=== PATIENT | male | born 1980 | race Caucasian/White ===

== ENCOUNTER 2021-02-07 01:32 | Emergency (ER) | payer MEDICAID, SELFPAY ==
[2021-02-07 01:43] VITALS: BP 125/79; PULSE 89; RESP 18; TEMP 36.9; O2SAT 98; BMI 28.3
--- NOTE | 2021-02-07 02:43 | HMH.EDMCLR ---
ED Disposition Clinical Impression: Medical clearance for incarceration Disposition: Home, Self-Care Condition on Discharge: Good Instructions: DI for Puncture Wound Additional Instructions: see pcp for follow up Referrals: Provider,Jeferson, [Primary Care Provider] - - Critical Care Critical Care Time: No Attestation: On 02/07/21, the high probability of a clinically significant, sudden or life threatening deterioration of the following system(s) required my full and direct attention, intervention and personal management. The time I documented below is in addition to time spent performing reported procedures but includes the following listed in this critical care notation. Medical Decision Making - Medical Records Medical records reviewed: Yes: I reviewed the patient's medical records. - Tani Inquiry Pt receiving controlled substance: No Vital Signs: 02/07/21 01:43 Temperature 98.5 F Temperature Source Oral Pulse Rate [Right Brachial] 89 Respiratory Rate 18 Blood Pressure [Right Arm] 125/79 Blood Pressure Mean [Right Arm] 94 Blood Pressure Source [Right Arm] Automatic Cuff Blood Pressure Position [Right Arm] Sitting 02 Sat by Pulse Oximetry 98 Oxygen Delivery Method Room Air Medical Clearance HPI - General Chief complaint: Medical Clearance Stated complaint: Medical Clearance Time Seen by Provider: 02/07/21 02:20 Mode of Arrival: Family Vehicle Source of Information: Patient, Medical Record Limitations: No Limitations Description of Symptoms (Recalled from ER Triage Doc. by RN): MEDICAL CLEARANCE FOR SKILLED NURSING. - History of Present Illness HPI Narrative: no specific c/o - hx of pw lt foot MD complaint: medical clearance requested Onset (ago): hour(s) Place: home Traumatic Symptoms: denies traumatic injury Associated Symptoms: denies other symptoms Treatments Prior to Arrival: none Allergies/Adverse reactions: Allergies Allergy/AdvReac Type Severity Reaction Status Date / Time No Known Allergies Allergy Unverified 09/08/17 15:20 [facility] History - Hepatitis A Screen Drug use history?: No High risk sexual behaviors?: No History of sexually transmitted infection?: No Currently employed?: No Childcare worker?: No Do you have indoor plumbing?: Yes Do you have electricity?: Yes Attestation statement:: This patient has been screened for Hepatitis A risk factors. I have reviewed the patient's past medical history: Yes ROS Obtained: Yes All systems reviewed & no additional complaints - Constitutional Constitutional: Denies fever(s) - Eyes Eyes: Denies eye discharge - ENT Ears, Nose, Mouth, and Throat: Denies sore throat - Cardiovascular Cardiovascular: Denies chest pain - Respiratory Respiratory: Denies shortness of breath - Gastrointestinal Gastrointestingal: Denies: abdominal pain - Genitourinary Male Genitourinary: Denies hematuria - Musculoskeletal Musculoskeletal: Denies joint pain - Integumentary/Breasts Skin/Breast: Denies rash - Neurologic Neurologic: Denies focal weakness Physical Exam - General General appearance: alert - Head Head exam: normocephalic - Eye Eye exam: Present: PERRL, EOMI - ENT ENT exam: Present: mucous membranes moist - Neck Neck exam: Present: trachea midline - Respiratory Respiratory exam: Absent: respiratory distress - Cardiovascular Cardiovascular exam: Present: regular rate - Abdominal Exam Abdominal exam: Present: soft - Extremities Exam Extremities exam: Present: full ROM, other (lt foot appears ok ) - Neurological Exam Neurological exam: Present: alert, CN II-XII intact - Skin Skin exam: Absent: rash
[2021-02-07 02:53] VITALS: BP 101/75; PULSE 89; RESP 16; TEMP 36.8; O2SAT 99
== END 2021-02-07 03:07 | disposition home or self-care (01) ==
PROVIDERS: Emergency Provider Emergency Medicine
DX: S91.332A Puncture wound without foreign body, left foot, initial encounter (principal)
CPT/HCPCS: 99281

== ENCOUNTER 2022-05-17 13:06 | Emergency (ER) | payer MEDICAID, SELFPAY ==
[2022-05-17 13:07] VITALS: BP 110/74; PULSE 98; RESP 16; TEMP 37.2; O2SAT 98; BMI 22.3
--- NOTE | 2022-05-17 13:15 | XR_ITS ---
PROCEDURE INFORMATION: Exam: XR Left Forearm Exam date and time: 05/17/2022 1:33 PM Age: 41 years old Clinical indication: Injury or trauma; Other: Dog bite; Arm, lower; Left; Additional info: Dog bite TECHNIQUE: Imaging protocol: Radiologic exam of the Left forearm. Views: 2 views. COMPARISON: No relevant prior studies available. FINDINGS: Bones/joints: Radius and ulna without appreciable fracture. The distal radius and the distal ulna unremarkable. Visualized portions of the carpus normal. The distal radial ulnar joint normal. Visualized portions without gross deformity. Soft tissues: Soft tissue laceration adjacent to the distal aspect of the ulna volarly. No visualized foreign body. IMPRESSION: Soft tissue laceration adjacent to the distal aspect of the ulna volarly. No visualized foreign body.
--- NOTE | 2022-05-17 13:21 | HMH.EDANIB ---
Discharge Plan Disposition Patient Disposition: Home, Self-Care Condition: Good Chief Complaint: Animal Bite Prescriptions Prescriptions: New clindamycin HCl [Cleocin HCl] 300 mg capsule 300 mg PO Q6H 10 Days Qty: 40 0RF hydrocodone-acetaminophen 7.5-325 mg tablet 1 tab PO Q6H PRN (Reason: pain) Qty: 10 0RF Referrals Follow up/Referrals: Provider,Referral, MD [Primary Care Provider] - See instructions Activity Restrictions/Add. Instructions Additional Instructions/Restrictions: [facility] Call for appt to be seen in 2-3 days, follow up animal control for dog eval, follow up PCP in 7-10 days Clinical Impressions Clinical Impression: Dog bite, Laceration Instructions Patient Instructions: How to Care for a Domestic Animal Bite, Animal Bites Discharge ED Provider: Reed Nolasco Animal Bite HPI General Chief Complaint: Animal Bite Stated Complaint: [id number] dog bite to left wrist Time Seen by Provider: 05/17/22 13:15 Mode of Arrival: Ambulatory Source of Information: Patient Limitations: No Limitations History of Present Illness HPI narrative: 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 Onset (ago): minute(s) Animal: dog Description of animal: appeared ill (unprovoked attack on street, says he can find dog and report to animal control for rabies hx and monitoring) Mechanism: bite Left: forearm Pain description: sharp Associated symptoms: none Related Data Patient tetanus UTD: No Previous Rx's Medication Instructions Recorded clindamycin HCl 300 mg capsule 300 mg PO Q6H 10 days #40 caps 05/17/22 (Cleocin HCl) hydrocodone 7.5 mg-acetaminophen 1 tab PO Q6H PRN pain #10 tabs 05/17/22 325 mg tablet Allergies Allergy/AdvReac Type Severity Reaction Status Date / Time No Known Allergies Allergy Unverified 09/08/17 15:20 PFSH PFSH Social History Smoking Status: Current every day smoker alcohol intake: never current occupational status: other ROS Obtained: Yes All systems reviewed & no additional complaints except as documented Physical Exam General General appearance: alert and in no apparent distress Respiratory Respiratory exam: Absent respiratory distress, wheezes or stridor Cardiovascular Cardiovascular exam: Present regular rate and normal rhythm; Absent bradycardia Extremities Exam Extremities exam: Present other (left forearm multiple puncture wounds, lac#1 1cm gaping into subq, lac#2 4cm irreg gaping into subq, FROM wrist and fingers, patchy numbness of digits 2-5 non dermatomal, no lig/ten injury seen, N/V intact) Neurological Exam Neurological exam: Present alert, oriented X3 and CN II-XII intact Medical Decision Making Tani Inquiry Pt receiving controlled substance: Yes Tani was queried for this patient: Yes Risks and benefits of using a controlled substance: were discussed with pt by me Vital Signs: 05/17/22 13:07 05/17/22 14:51 Temperature 99 F 98 F Temperature Source Oral Oral Pulse Rate 74 Pulse Rate [Radial] 98 H Respiratory Rate 16 16 Blood Pressure 137/74 Blood Pressure [Right Arm] 110/74 Blood Pressure Mean [Right Arm] 86 Blood Pressure Position Sitting Blood Pressure Position [Right Arm] Sitting 02 Sat by Pulse Oximetry 98 Oxygen Delivery Method Room Air Room Air Orders (Tests/Meds): ED MEDICATIONS Discontinued Medications Generic Name Dose Route Start Last Admin Trade Name Helen PRN Reason Stop Dose Admin Acetaminophen 650 mg 05/17/22 13:25 05/17/22 14:13 Acetaminophen 325mg Tab PO 05/17/22 13:26 650 mg ONCE ONE Administration Ceftriaxone Sodium 1 gm 05/17/22 14:04 05/17/22 14:14 Ceftriaxone 1gm Vial IM 05/17/22 14:05 1 gm ONCE ONE Administration Lidocaine HCl 0 ml 05/17/22 14:04 05/17/22 14:15 Lidocaine 1% 5ml Pf Vial IM 05/17/22 14:05 2 ml ONCE ONE Administration Tetanus/Reduced Diphtheria/A
--- NOTE | 2022-05-17 14:33 | PC.NURSE ---
dry sterile dressing applied to lt arm
[2022-05-17 14:51] VITALS: BP 137/74; PULSE 74; RESP 16; TEMP 36.6; O2SAT 98
== END 2022-05-17 14:53 | disposition home or self-care (01) ==
PROVIDERS: Emergency Provider Emergency Medicine
DX: S51.812A Laceration without foreign body of left forearm, initial encounter (principal); W54.0XXA Bitten by dog, initial encounter
CPT/HCPCS: 12001; 73090; 90715; 96372; 99283; J0696